=== PATIENT | male | born 1990 | race African-American/Black ===

== ENCOUNTER 2019-03-21 09:57 | Emergency (ER) | payer SELFPAY ==
[~2019-03-21] VITALS: Ht 195.6 cm; Wt 72.6 kg
[~2019-03-21 09:57] MED LIST: NAPR-682 PO; ORPH100T PO
[2019-03-21 10:40] VITALS: BP 162/95
[2019-03-21] MEDS ORDERED: ACETAMINOPHEN 500 MG TABLET PO ONE (11:00)
[2019-03-21] MEDS ORDERED: DEXAMETHASONE SOD PHOS 20 MG/5 ML VIAL. PO ONE (11:00)
[2019-03-21] MEDS ORDERED: OSEL75CA PO (11:14)
--- NOTE | 2019-03-21 11:14 | PHYS DOC ---
Past Medical History Past Medical History: No Pertinent History Past Surgical History: No Surgical History Alcohol Use: Occasionally Drug Use: None Adult General Chief Complaint Chief Complaint: FLU SYMPTOM HPI HPI Patient is a 28 year old AA male who presents to the emergency department with complaints of back pain, nausea, vomiting, fever, body aches, and chills that began yesterday. He denies any shortness breath, cough, wheezing, stridor, ear pain, abdominal pain, or diarrhea. He denies any dysuria, hematuria, or increased urinary frequency. He currently rates his discomfort as 7 out of 10 on the pain scale, he denies any alleviating or exacerbating factors. All other ROS is neg unless otherwise noted in HPI. Review of Systems Review of Systems See Above Current Medications Current Medications Current Medications Medications (Trade) Dose Ordered Sig/Noah Start Time Stop Time Status Last Admin Dose Admin Acetaminophen (Tylenol) 1,000 mg 1X ONCE 03/21/19 11:00 03/21/19 11:01 DC 03/21/19 11:18 1,000 MG Dexamethasone Sodium Phosphate (Decadron) 10 mg 1X ONCE 03/21/19 11:00 03/21/19 11:01 DC 03/21/19 11:18 10 MG Allergies Allergies Allergies Coded Allergies Type Severity Reaction Last Updated Verified No Known Drug Allergies 04/02/13 No Physical Exam Physical Exam See Above Constitutional: Well developed, well nourished, no acute distress, non-toxic appearance. [] HENT: Normocephalic, atraumatic, bilateral external ears normal, bilateral TMs normal, posterior pharynx normal oropharynx moist, no oral exudates, nose normal. [] Eyes: PERRLA, EOMI, conjunctiva normal, no discharge. [] Neck: Normal range of motion, no tenderness, supple, no stridor. [] Cardiovascular:Heart rate regular rhythm, no murmur [] Lungs & Thorax: Bilateral breath sounds clear to auscultation, Respirations even and unlabored, no retractions, no respiratory distress [] Abdomen: soft, no tenderness, Skin: Warm, dry, no erythema, no rash. [] Back: No tenderness Extremities: No cyanosis, ROM intact Neurologic: Alert and oriented X 3, no focal deficits noted. [] Psychologic: Affect normal, judgement normal, mood normal. [] Current Patient Data Vital Signs Vital Signs Date Time Temp Pulse Resp B/P (MAP) Pulse Ox O2 Delivery O2 Flow Rate FiO2 03/21/19 10:40 100.1 102 16 162/95 (117) 96 Room Air 100.1 EKG EKG [] Radiology/Procedures Radiology/Procedures [] Course & Med Decision Making Course & Med Decision Making Pertinent Labs and Imaging studies reviewed. (See chart for details) Patient was given Tylenol for fever, 10 mg of Decadron for treatment of the cough. An influenza test was not performed as patient likely has influenza with recent exposure. Prescription was written for Tamiflu. Patient care was discussed with Dr. Jacobs prior to disposition. [] Dragon Disclaimer Dragon Disclaimer This electronic medical record was generated, in whole or in part, using a voice recognition dictation system. Departure Departure Impression: Primary Impression: Flu-like symptoms Additional Impression: Fever Disposition: HOME, SELF-CARE Condition: STABLE Referrals: NO PCP (PCP) Patient Instructions: Fever, Adult, [id number], Influenza, Adult, [id number] Additional Instructions: Fill the prescription and take as directed. Alternate Tylenol and ibuprofen as needed for fever. Increase clear fluids and rest. Diet as tolerated. Recommend use of [id number] flu medications as needed for relief of your symptoms. Follow up with your primary care doctor if symptoms persist, return to the ER symptoms worsen. Scripts Oseltamivir Phosphate (TAMIFLU) 75 Mg Capsule 1 CAP PO BID for 5 Days, #10 CAP 0 Refills Prov: PHUONG CORREA APRN 03/21/19 Problem Qualifiers Additional Impression: Fever Fever type: unspecified Qualified Codes: R50.9 - Fever, unspecified PHUONG CORREA [employer] Mar 21, 2019 11:14
== END 2019-03-21 11:26 | disposition home or self-care (01) ==
LOC: ER 09:57
DX: J11.1 Influenza due to unidentified influenza virus with other respiratory manifestations (principal); R11.2 Nausea with vomiting, unspecified; R50.9 Fever, unspecified; M54.9 Dorsalgia, unspecified; Z79.899 Other long term (current) drug therapy
CPT/HCPCS: 99283; J1100